=== PATIENT | female | born 1960 | race Caucasian/White ===

== ENCOUNTER 2018-08-25 16:35 | Emergency (ER) | payer SELFPAY ==
--- NOTE | 2018-08-25 17:26 | ER Document Report ---
ED Medical Screen (RME) - General Chief Complaint: Vision Problem Stated Complaint: BLURRED VISION Time Seen by Provider: 08/25/18 17:23 Mode of Arrival: Ambulatory Information source: Patient Notes: 58 years old female presents today after lifting some boxes started having pain all around the neck particularly over the clavicle region and also shoulder region. Then today around 3 AM started having some blurred vision and the bladder but then it improved then again around 3:00 started having another episode while she was driving she was seeing a seeing a reverse manner which was blurred. Associated with left facial numbness and left arm numbness. She dropped her glass of water. This happened after she reached her destination and was holding a cup of water. Therefore concerned and came to the ED. She have sharp tenderness over the left paraspinal muscles of the neck, as well as over the left clavicular region. TRAVEL OUTSIDE OF THE [place] IN LAST 30 DAYS: No - Related Data Allergies/Adverse Reactions: avocado Allergy (Verified 08/25/18 16:37) codeine Allergy (Verified 08/25/18 16:37) iodine Allergy (Verified 08/25/18 16:37) mold Allergy (Verified 08/25/18 16:37) morphine Allergy (Verified 08/25/18 16:37) povidone-iodine [From Betadine] Allergy (Verified 08/25/18 16:37) soap [From Betadine] Allergy (Verified 08/25/18 16:37) MILDEW Allergy (Uncoded 08/25/18 16:37) PINE Allergy (Uncoded 08/25/18 16:37) SEAFOOD Allergy (Uncoded 08/25/18 16:37) Past Medical History - Social History Frequency of alcohol use: Rare Drug Abuse: None - Past Medical History Cardiac Medical History: Reports: Hx Hypertension - untreated Renal/ Medical History: Denies: Hx Peritoneal Dialysis Past Surgical History: Reports: Hx Cholecystectomy, Hx Orthopedic Surgery - L5- S1 herniated disks, Hx Tubal Ligation Physical Exam - Vital signs Vitals: Temp Pulse Resp BP Pulse Ox 98.2 F 84 16 164/88 H 97 08/25/18 16:41 08/25/18 16:41 08/25/18 16:41 08/25/18 16:41 08/25/18 16:41 Course - Vital Signs Vital signs: Temp Pulse Resp BP Pulse Ox 98.2 F 84 16 164/88 H 97 08/25/18 16:41 08/25/18 16:41 08/25/18 16:41 08/25/18 16:41 08/25/18 16:41
[2018-08-25 17:47] LABS: ABSOLUTE BASOPHILS # (AUTO) 0.1 10^3/uL (0.0-0.2); ABSOLUTE EOSINOPHILS # (AUTO) 0.4 10^3/uL (0.0-0.6); ABSOLUTE MONOCYTES (AUTO) 0.9 10^3/uL (0.1-1.4); ABSOLUTE NEUT (AUTO) 6.4 10^3/uL (1.7-8.2); BASOPHILS % (AUTO) 1.2 % (0-2); EOSINOPHILS % (AUTO) 3.7 % (0-6); HEMATOCRIT 39.5 % (36.0-47.0); HEMOGLOBIN 13.3 g/dL (12.0-15.5); LYMPHOCYTES % (AUTO) 27.4 % (13-45); MEAN CORPUSCULAR HEMOGLOBIN 29.1 pg (27.0-33.4); MEAN CORPUSCULAR HGB CONC 33.8 g/dL (32.0-36.0); MEAN CORPUSCULAR VOLUME 86 fl (80-97); RED BLOOD COUNT 4.58 10^6/uL (3.72-5.28); RED CELL DISTRIBUTION WIDTH 14.4 % (11.5-14.0); SEGMENTED NEUTROPHILS % (AUTO) 59.7 % (42-78); TOTAL CELLS COUNTED % (AUTO) 100 %; WHITE BLOOD COUNT 10.8 10^3/uL (4.0-10.5)
--- NOTE | 2018-08-25 18:02 | RADIOLOGY REPORT (SQ) ---
EXAM DESCRIPTION: CT HEAD WITHOUT COMPLETED DATE/TIME: 08/25/2018 5:44 pm REASON FOR STUDY: Left facial weakness COMPARISON: None. TECHNIQUE: Axial images acquired through the brain without intravenous contrast. Images reviewed wi th bone, brain and subdural windows. Images stored on PACS. All CT scanners at this facility use dose modulation, iterative reconstruction, and/or weight based d osing when appropriate to reduce radiation dose to as low as reasonably achievable (ALARA). [facility]: Dose Right [facility]: CareDose [facility]: Dose Right [facility]: Teradose 4D [facility]: [place] RADIATION DOSE: CT Rad equipment meets quality standard of care and radiation dose reduction techniq ues were employed. CTDIvol: 53.2 mGy. DLP: 964 mGy-cm. mGy. LIMITATIONS: None. FINDINGS: VENTRICLES: Normal size and contour. CEREBRUM: No masses. No hemorrhage. No midline shift. No evidence for acute infarction. Normal gra y/white matter differentiation. No areas of low density in the white matter. CEREBELLUM: No masses. No hemorrhage. No alteration of density. No evidence for acute infarction. EXTRAAXIAL SPACES: No fluid collections. No masses. ORBITS AND GLOBE: No intra- or extraconal masses. Normal contour of globe without masses. CALVARIUM: No fracture. PARANASAL SINUSES: Left maxillary sinusitis. SOFT TISSUES: No mass or hematoma. OTHER: No other significant finding. IMPRESSION: No acute intracranial findings. Left maxillary sinusitis. EVIDENCE OF ACUTE STROKE: NO. COMMENT: Quality ID # [id number]: Final reports with documentation of one or more dose reduction techniques (e.g., Automated exposure control, adjustment of the mA and/or kV according to patient size, use of iterative reconstruction technique) TECHNICAL DOCUMENTATION: JOB ID: [id number] [place]-72 2010 [employer]- All Rights Reserved Reading location - IP/workstation name: [email or web address]
[2018-08-25 18:03] LABS: PLATELET COUNT 343 10^3/uL (150-450)
[2018-08-25] MEDS ORDERED: DIPHENHYDRAMINE HCL 50 MG CAPSULE PO ONE (18:23)
[2018-08-25] MEDS ORDERED: TETRACAINE HCL 0.5% OPH SOLN 4 ML OU ONE (18:25)
[2018-08-25 18:44] LABS: ALANINE AMINOTRANSFERASE 37 U/L (9-52); ALBUMIN 4.4 g/dL (3.5-5.0); ALKALINE PHOSPHATASE 62 U/L (38-126); ANION GAP 10 (5-19); ASPARTATE AMINO TRANSFERASE 25 U/L (14-36); BILIRUBIN,DIRECT 0.2 mg/dL (0.0-0.4); BILIRUBIN,TOTAL 0.6 mg/dL (0.2-1.3); BLOOD UREA NITROGEN 18 mg/dL (7-20); CALCIUM 9.7 mg/dL (8.4-10.2); CARBON DIOXIDE 29 mmol/L (22-30); CHLORIDE 103 mmol/L (98-107); GLUCOSE 88 mg/dL (75-110); POTASSIUM 4.2 mmol/L (3.6-5.0); SODIUM 141.9 mmol/L (137-145); TOTAL PROTEIN 7.4 g/dL (6.3-8.2)
--- NOTE | 2018-08-25 19:31 | ER Document Report ---
ED General - General Chief Complaint: Vision Problem Stated Complaint: BLURRED VISION Time Seen by Provider: 08/25/18 17:23 Mode of Arrival: Ambulatory Notes: Patient is a 58-year-old female that presents to the emergency department for chief complaint of facial numbness, and visual disturbance. Patient states that earlier today she experienced a headache over the left side of her head that involved see what she described as flashing backwards "c's" in the left side of her vision that lasted for a few moments then spontaneously resolved. She described the headache as wrapping toward the back of her head, and felt like her left face was numb. She took 324mg of ASA and 2 OTC aleve, which did help with her symptoms. This occurred shortly after lunch today. She does note that she has been having some sinus congestion recently as well. At this time her headache is resolved and she has not had any further visual changes. She denies having any fevers, chills, night sweats, chest pain, nausea, vomiting, or abdominal pain. Past Medical History: HTN (not on medication) Past Surgical History: cholecystetomy, back surgery Social History: Denies tobacco use, admits to rare ETOH use, denies illicit drug use. Family History: Reviewed and noncontributory for presenting illness Allergies: Reviewed, see documented allergy list. REVIEW OF SYSTEMS: Unless otherwise stated in this report the patient's positive and negative responses for review of systems for constitutional, eyes, ENT, cardiovascular, respiratory, gastrointestinal, neurological, genitourinary, musculoskeletal, and integumentary systems and related systems to the presenting problem are either as stated in the HPI or were not pertinent or were negative for the symptoms and/or complaints related to the presenting medical problem. PHYSICAL EXAMINATION: Vital signs reviewed, nursing noted reviewed. GENERAL: Well-appearing, well-nourished and in no acute distress. HEAD: Atraumatic, normocephalic. Temporal arteries non-palpable, non-tender. EYES: Eyes appear normal, extraocular movements intact, sclera anicteric, conjunctiva are normal. PERRLA. IOP Right: 20 average IOP Left: 22 average ENT: nares patent, oropharynx clear without exudates. Moist mucous membranes. Mild tenderness with palpation over the left maxilla without erythema noted. NECK: Normal range of motion, supple without lymphadenopathy LUNGS: Breath sounds clear to auscultation bilaterally and equal. No wheezes rales or rhonchi. HEART: Regular rate and rhythm without murmurs ABDOMEN: Soft, nontender, normoactive bowel sounds. No rebound, guarding, or rigidity. No masses appreciated. EXTREMITIES: Nontender, good range of motion, no pitting or edema. NEUROLOGICAL: No focal neurological deficits. Moves all extremities spontaneously Motor and sensory grossly intact on exam. CN tested intact, no facial numbness or change in sensation noted on exam. PSYCH: Normal mood, normal affect. SKIN: Warm, Dry, normal turgor, no rashes or lesions noted on exposed skin TRAVEL OUTSIDE OF THE [place] IN LAST 30 DAYS: No - Related Data Allergies/Adverse Reactions: avocado Allergy (Verified 08/25/18 16:37) codeine Allergy (Verified 08/25/18 16:37) iodine Allergy (Verified 08/25/18 16:37) mold Allergy (Verified 08/25/18 16:37) morphine Allergy (Verified 08/25/18 16:37) povidone-iodine [From Betadine] Allergy (Verified 08/25/18 16:37) soap [From Betadine] Allergy (Verified 08/25/18 16:37) MILDEW Allergy (Uncoded 08/25/18 16:37) PINE Allergy (Uncoded 08/25/18 16:37) SEAFOOD Allergy (Uncoded 08/25/18 16:37) Past Medical History - General Information source: Patient - Social History Smoking Status: Never Smoker Frequency of alcohol use: Rare Drug Abuse: None Family History: Reviewed & Not Pertinent Patient has suicidal ideation: No Patient has homicidal ideation: No - Past Medical History Cardiac Medical History: Reports: Hx Hypertension - untreated Renal/ Medical History: Denies: Hx Peritoneal Dialysis Past Surgical History: Reports: Hx Cholecystectomy, Hx Orthopedic Surgery - L5- S1 herniated disks, Hx Tubal Ligation Physical Exam - Vital signs Vitals: Temp Pulse Resp BP Pulse Ox 98.2 F 84 16 164/88 H 97 08/25/18 16:41 08/25/18 16:41 08/25/18 16:41 08/25/18 16:41 08/25/18 16:41 - HEENT Visual acuity- Right eye: 20/20 Visual acuity- Left eye: 20/20 Visual acuity- Both eyes: 20/15 Corrective lenses worn: No Course - Re-evaluation Re-evalutation: Patient seen and examined vital signs reviewed. Laboratory data and imaging were ordered as appropriate for the patient's presenting symptoms and complaint, with consideration of any critical or life threatening conditions that may be associated with their obtained history and exam as noted above. Results were reviewed when available and demonstrated CT of the head that demonstrated opacification of the left maxillary sinus, which would explain a lot of the patient's symptoms. I did obtain ESR and CRP, ESR was normal, only slight elevated in white count. Likely related to the patient's sinusitis The patient was re-evaluated and was improved and stable Evaluation was most consistent with left maxillary sinusitis, causing left facial paresthesias, however the patient's flashing lights that she saw her visual field could be a retinal tear, and advised that she follow-up with ophthalmology, and she is given a referral for this. She is advised her blood pressure was elevated as well and she will need to follow-up with her primary care physician regarding this. Patient will be treated with azithromycin for acute sinusitis. Results were discussed with the patient at this point, after careful consideration I feel that that patient can be discharged from the emergency department, the patient was educated treatments and reasons to return to the emergency department based on their presumed diagnosis as noted above, they were advised to followup with a primary care physician in 2-3 days. Patient was agreeable to plan of care. BEDSIDE OCULAR ULTRASOUND: Indication: Visual disturbance in the left visual jang Technique: Using linear probe, globes were visualized, and examined Findings: No retinal detachment observed, no lens dislocation, no vitreous hemorrhage appreciated. Normal bilateral ocular ultrasound *Note is created using voice recognition software and may contain spelling, syntax or grammatical errors. Laboratory 08/25/18 08/25/18 08/25/18 17:31 17:31 18:10 WBC 10.8 H RBC 4.58 Hgb 13.3 Hct 39.5 MCV 86 MCH 29.1 MCHC 33.8 RDW 14.4 H Plt Count 343 Seg Neutrophils % 59.7 Lymphocytes % 27.4 Monocytes % 8.0 Eosinophils % 3.7 Basophils % 1.2 Absolute Neutrophils 6.4 Absolute Lymphocytes 3.0 Absolute Monocytes 0.9 Absolute Eosinophils 0.4 Absolute Basophils 0.1 ESR Sodium Cancelled 141.9 Potassium Cancelled 4.2 Chloride Cancelled 103 Carbon Dioxide Cancelled 29 Anion Gap Cancelled 10 BUN Cancelled 18 Creatinine Cancelled 0.78 Est GFR ( Amer) Cancelled > 60 Est GFR (Non-Af Amer) Cancelled > 60 Glucose Cancelled 88 Calcium Cancelled 9.7 Total Bilirubin Cancelled 0.6 Direct Bilirubin Cancelled 0.2 Neonat Total Bilirubin Cancelled Not Reportable Neonat Direct Bilirubin Cancelled Not Reportable Neonat Indirect Bili Cancelled Not Reportable AST Cancelled 25 ALT Cancelled 37 Alkaline Phosphatase Cancelled 62 C-Reactive Protein Total Protein Cancelled 7.4 Albumin Cancelled 4.4 08/25/18 08/25/18 18:10 18:10 WBC RBC Hgb Hct MCV MCH MCHC RDW Plt Count Seg Neutrophils % Lymphocytes % Monocytes % Eosinophils % Basophils % Absolute Neutrophils Absolute Lymphocytes Absolute Monocytes Absolute Eosinophils Absolute Basophils ESR 18 Sodium Potassium Chloride Carbon Dioxide Anion Gap BUN Creatinine Est GFR ( Amer) Est GFR (Non-Af Amer) Glucose Calcium Total Bilirubin Direct Bilirubin Neonat Total Bilirubin Neonat Direct Bilirubin Neonat Indirect Bili AST ALT Alkaline Phosphatase C-Reactive Protein 29.7 H Total Protein Albumin Head CT 08/25/18 17:23 IMPRESSION: No acute intracranial findings. Left maxillary sinusitis. EVIDENCE OF ACUTE STROKE: NO. - Vital Signs Vital signs: Temp Pulse Resp BP Pulse Ox 98.3 F 80 17 178/82 H 97 08/25/18 19:44 08/25/18 19:44 08/25/18 19:44 08/25/18 19:44 08/25/18 19:44 - Laboratory Result Diagrams: 08/25/18 17:31 08/25/18 18:10 Laboratory results interpreted by me: 08/25/18 08/25/18 17:31 18:10 WBC 10.8 H RDW 14.4 H C-Reactive Protein 29.7 H Discharge - Discharge Clinical Impression: Facial paresthesia, Vision disturbance Acute sinusitis Qualifiers: Sinusitis location: maxillary Recurrence: not specified as recurrent Qualified Code(s): J01.00 - Acute maxillary sinusitis, unspecified Condition: Stable Disposition: HOME, SELF-CARE Instructions: Sinusitis ([facility]) Additional Instructions: Please return to the emergency department if you have any worsening, or concern of your symptoms. Please return to the emergency department if you develop chest pain, difficulty breathing, severe abdominal pain, or ongoing vomiting. Please follow-up with your primary care physician in 2-3 days and any other recommended physicians. If prescribed, take all medications as directed. If you have any questions or concerns do not hesitate to return the emergency department for evaluation. Please follow-up with ophthalmology, call for appointment on Monday. Prescriptions: Azithromycin [Zithromax 250 mg Tablet] 250 mg PO ASDIR PRN #6 tablet PRN Reason: Guaifenesin [Mucinex] 600 mg PO Q12 #30 tab Referrals: [facility] DO [ACTIVE STAFF] - Follow up in 3-5 days (CALL ON MONDAY FOR APPOINTMENT. )
[2018-08-25 19:57] VITALS: BP 178/82
== END 2018-08-25 19:57 | disposition home or self-care (01) ==
LOC: ER 16:35
DX: J01.00 Acute maxillary sinusitis, unspecified (principal); R20.0 Anesthesia of skin; R51 Headache; H53.8 Other visual disturbances; R09.81 Nasal congestion; I10 Essential (primary) hypertension; D72.829 Elevated white blood cell count, unspecified; Z91.018 Allergy to other foods; Z88.5 Allergy status to narcotic agent; Z91.048 Other nonmedicinal substance allergy status; Z88.3 Allergy status to other anti-infective agents; Z91.013 Allergy to seafood
CPT/HCPCS: 99284; 36415; 85025; 85652; 86140; 80053; 70450; J3490